=== PATIENT | male | born 1985 | race Caucasian/White ===

== ENCOUNTER 2017-02-14 14:29 | Emergency (ER) | payer OTHER ==
--- NOTE | 2017-02-22 18:52 | ER ---
ADMIT: 02/14/2017 RM/LOC: ER [facility] MR#: [id number] [id number] [address] [place] [address] Emergency Room Report SEX: M AGE: 31 : 1985 DATE: 02/14/2017 ADDENDUM: SUBJECTIVE: This patient comes into the ER because he had 2 episodes of rectal bleeding. He went to Urgent Care, and they have told him to come here to the ER. They did do blood work on him which was normal. He has no pain and feels like he is normal. On physical exam, his abdomen is soft, nontender to palpation. On rectal exam, he does have a small external hemorrhoid that does not appear to be flamed or bleeding. I did think I felt an internal hemorrhoid. He had no pain in his rectum. DIAGNOSIS: Hemorrhoid. I wrote a prescription for Anusol-HC. We will have him try that. If he continues to have severe bleeding, he is to follow up with his primary and to keep his stool soft. Please see my T-sheet. ARMANDO Anderson / Julio Herrera MD / emili JOB #: [id number] CC: Julio Herrera MD, Attending Physician Vega Beck MD, Family Physician
== END 2017-02-14 15:15 | disposition home or self-care (01) ==
LOC: ER 14:29
DX: K64.9 Unspecified hemorrhoids (principal); Z79.899 Other long term (current) drug therapy